=== PATIENT | male | born 1980 | race Caucasian/White ===

== ENCOUNTER 2021-07-18 12:31 | Emergency (ER) | payer OTHER ==
[2021-07-18] MEDS ORDERED: Bacitracin Oint 1 GM U/D Packet TOP ONE (12:42)
[2021-07-18] MEDS ORDERED: Lidocaine 1% with EPINEPHrine 1:100,000 50 ML MDV INJECT STA (12:42)
--- NOTE | 2021-07-18 13:09 | EDM.PDOC ---
ED HPI GENERAL MEDICAL PROBLEM - General Chief Complaint: Laceration Stated Complaint: CUT FOREHEAD Time Seen by Provider: 07/18/21 12:38 Source of Information: Reports: Patient History Limitations: Reports: No Limitations - History of Present Illness INITIAL COMMENTS - FREE TEXT/NARRATIVE: Mehrdad is a 40-year-old male presenting to the ED for evaluation of a close head injury and laceration to the scalp that occurred today when [place] in [place] maintenance. Somehow he managed to strike himself on top of the head with one of the posts causing a deep laceration at the vertex of the skull and some acute lightheadedness. Patient denies any loss of consciousness. The patient's last tetanus was in 2019. He denies any nausea but does have a mild headache. He says initially when he got hit he had some blurring of his vision in the right eye but that quickly came back. He has not on any anticoagulation. Head Pain Score (Numeric/FACES): 6 - Related Data Allergies Allergy/AdvReac Type Severity Reaction Status Date / Time Penicillins Allergy Hives Verified 07/18/21 12:44 Home Meds: Home Meds azaTHIOprine [Imuran] 100 mg PO DAILY 07/18/21 [History] predniSONE 15 mg PO DAILY 07/18/21 [History] Past Medical History Cardiovascular History: Reports: None Respiratory History: Reports: None Gastrointestinal History: Reports: Other (See Below) Other Gastrointestinal History: UC Genitourinary History: Reports: None Musculoskeletal History: Reports: Fracture Neurological History: Reports: None Psychiatric History: Reports: None Endocrine/Metabolic History: Reports: None Hematologic History: Reports: None Immunologic History: Reports: Other (See Below) Oncologic (Cancer) History: Reports: None Dermatologic History: Reports: None - Infectious Disease History Infectious Disease History: Reports: Chicken Pox, Novel Coronavirus - Past Surgical History HEENT Surgical History: Reports: Naso-Sinus Surgery Other HEENT Surgeries/Procedures: right side GI Surgical History: Reports: Colonoscopy Musculoskeletal Surgical History: Reports: None Social & Family History - Tobacco Use Tobacco Use Status *Q: Former Tobacco User Used Tobacco, but Quit: Yes Month/Year Tobacco Last Used: 5 years - Caffeine Use Caffeine Use: Reports: Coffee - Recreational Drug Use Recreational Drug Use: No ED ROS GENERAL - Review of Systems Review Of Systems: See Below Constitutional: Reports: No Symptoms HEENT: Reports: Vision Change (Initially had some blurring of his vision in the right eye but that has subsequently cleared), Other (Midline parietal scalp laceration and swelling) Respiratory: Reports: No Symptoms Cardiovascular: Reports: No Symptoms Endocrine: Reports: No Symptoms GI/Abdominal: Reports: No Symptoms : Reports: No Symptoms Musculoskeletal: Reports: No Symptoms Skin: Reports: Wound (4.2 cm laceration midline parietal scalp) Neurological: Reports: Headache (Very mild headache) Psychiatric: Reports: No Symptoms Hematologic/Lymphatic: Reports: No Symptoms Immunologic: Reports: No Symptoms ED EXAM, SKIN/RASH Exam: See Below Exam Limited By: No Limitations General Appearance: Alert, Anxious Eye Exam: Bilateral Eye: EOMI, PERRL Throat/Mouth: Normal Oropharynx, Normal Voice, No Airway Compromise Head: Normocephalic, Other (Swelling of the scalp in the midline parietal region with a 4.2 cm laceration gapping widely. There is 1 area of arterial scalp bleeding.) Neck: Normal Inspection, Supple, Full Range of Motion Neurological: Alert, Oriented, CN II-XII Intact, Normal Cognition, No Motor/Sensory Deficits Skin: Wound/Incision (4.2 cm laceration midline parietal scalp) Location, Skin: Head Characteristics: Linear ED SKIN PROCEDURES - Laceration/Wound Repair Upper Midline Head Appearance: Subcutaneous, Clean Distal NVT: Neuro & Vascular Intact Anesthetic Type: Local Local Anesthesia - Lidocaine (Xylocaine): 1% with EPI Local Anesthetic Volume: 4cc Skin Prep: Chlorhexidine (Hibiciens) Exploration/Debridement/Repair: Wound Explored, In a Bloodless Field, Explored to Base Lac/Wound length In cm: 4.2 Suture Size: 4-0 # of Sutures: 9 Suture Type: Nylon, Interrupted Tetanus Status Addressed: Yes Complications: No Course - Vital Signs Last Recorded V/S: Last Vital Signs Temp 36.8 C 07/18/21 12:42 Pulse 70 07/18/21 12:42 Resp 18 07/18/21 12:42 BP 132/83 07/18/21 12:42 Pulse Ox 100 07/18/21 12:42 - Orders/Labs/Meds Meds: Medications Discontinued Medications Generic Name Dose Route Start Last Admin Trade Name Freq PRN Reason Stop Dose Admin Bacitracin 1 dose 07/18/21 12:42 07/18/21 12:56 Bacitracin Oint 1 Gm U/D Packet TOP 07/18/21 12:43 1 dose ONETIME ONE Administration Lidocaine/Epinephrine 5 ml 07/18/21 12:42 07/18/21 12:56 Lidocaine 1% With Epinephrine 1:100,000 50 Ml Mdv INJECT 07/18/21 12:43 5 ml NOW STA Administration Departure - Departure Time of Disposition: 13:01 Disposition: Home, Self-Care 01 Clinical Impression: Laceration of scalp Qualifiers: Encounter type: initial encounter Qualified Code(s): S01.01XA - Laceration without foreign body of scalp, initial encounter Head injury, closed, without LOC Qualifiers: Encounter type: initial encounter Qualified Code(s): S09.90XA - Unspecified injury of head, initial encounter - Discharge Information Instructions: Head Injury, Adult, [id number], Laceration Care, Adult, [id number], Sutures, [place], or Adhesive Wound Closure, [id number] Referrals: PCP,None [Primary Care Provider] - Care Plan Goals: 9 stitches were placed into your scalp to close the wound. You may have a little bleeding from the wound for the next couple of hours. Please keep the wound clean and dry for the next 24 hours. After this time you can shower and get your head wet. Please apply a light coating of bacitracin or Neosporin to the wound twice daily. The sutures need to be removed in 7 days. Sepsis Event Note (ED) - Evaluation Sepsis Screening Result: No Definite Risk - Focused Exam Vital Signs: Vital Signs Temp Pulse Resp BP Pulse Ox 07/18/21 12:42 36.8 C 70 18 132/83 100 - Problem List & Annotations (1) Head injury, closed, without LOC SNOMED Code(s): 280933913333, 759617512804 Code(s): S09.90XA - UNSPECIFIED INJURY OF HEAD, INITIAL ENCOUNTER Status: Acute Priority: Medium Current Visit: Yes Qualifiers: Encounter type: initial encounter Qualified Code(s): S09.90XA - Unspecified injury of head, initial encounter (2) Laceration of scalp SNOMED Code(s): 250177110 Code(s): S01.01XA - LACERATION WITHOUT FOREIGN BODY OF SCALP, INITIAL ENCOUNTER Status: Acute Priority: Medium Current Visit: Yes Qualifiers: Encounter type: initial encounter Qualified Code(s): S01.01XA - Laceration without foreign body of scalp, initial encounter - Problem List Review Problem List Initiated/Reviewed/Updated: Yes
== END 2021-07-18 13:13 | disposition home or self-care (01) ==
LOC: JP.ED 12:31
DX: S01.01XA Laceration without foreign body of scalp, initial encounter (principal); Z87.891 Personal history of nicotine dependence; Z88.0 Allergy status to penicillin; Z86.16 Personal history of COVID-19; W22.8XXA Striking against or struck by other objects, initial encounter
CPT/HCPCS: 12002; 99282-25